=== PATIENT | male | born 1995 ===

== ENCOUNTER 2017-10-21 09:37 | Emergency (ER) | payer SELFPAY ==
[~2017-10-21] VITALS: Ht 170.2 cm; Wt 68.0 kg
[~2017-10-21 09:37] MED LIST: AMOX500 PO; CEPH500 PO; CODACEE120 PO; Cymbalta60 MG PO; HYDACE5 PO; IBUP800 PO; PENVK500 PO; PRAZ1 PO; PRAZ5 PO; RXHYDACE PO; RXPENVK250 PO; SILSUL1TC TOP; VENL150ER PO; VENL75ER PO; Veetids 500500 MG PO
[2017-10-21] MEDS ORDERED: NAPR500 PO (10:47)
[2017-10-21] MEDS ORDERED: Keflex500 MG PO (10:47)
[2017-10-21] MEDS ORDERED: Vibramycin100 MG PO (10:47)
== END 2017-10-21 10:56 | disposition home or self-care (01) ==
LOC: ER 09:37
DX: L03.032 Cellulitis of left toe (principal); F17.210 Nicotine dependence, cigarettes, uncomplicated; Z88.2 Allergy status to sulfonamides; Z88.1 Allergy status to other antibiotic agents; Z79.899 Other long term (current) drug therapy; Z86.14 Personal history of Methicillin resistant Staphylococcus aureus infection
CPT/HCPCS: 99282

== ENCOUNTER 2017-10-23 00:38 | Inpatient (IN) | payer SELFPAY ==
[~2017-10-23] VITALS: Ht 170.2 cm; Wt 68.0 kg
[~2017-10-23 00:38] MED LIST changes: +Keflex500 MG PO; +NAPR500 PO; +Vibramycin100 MG PO
[2017-10-23 01:33] LABS: BASOPHILS ABSOLUTE AUTO 0.05 K/mm3 (0.00-0.23); BASOPHILS PERCENT AUTO 0 % (0-2); EOSINOPHILS PERCENT AUTO 2 % (0-6); Hematocrit 39.5 % (37.0-53.0); Hemoglobin 13.2 g/dL (13.5-17.5); IMMATURE GRAN ABSOLUTE AUTO 0.06 K/mm3 (0.00-0.10); IMMATURE GRAN PERCENT AUTO 0 % (0-1); LYMPHOCYTES ABSOLUTE AUTO 2.38 K/mm3 (0.84-5.20); LYMPHOCYTES PERCENT AUTO 18 % (21-46); MONOCYTES PERCENT AUTO 6 % (4-13); Mean Corpuscular HGB 29.9 pg (26.0-34.0); Mean Corpuscular HGB Conc 33.4 g/dL (31.5-36.5); Mean Corpuscular Volume 90 fL (80-100); Mean Platelet Volume 10.5 fL (9.1-12.4); NEUTROPHILS ABSOLUTE AUTO 9.99 K/mm3 (1.96-9.15); NEUTROPHILS PERCENT AUTO 74 % (41-73); Platelet Count 194 K/mm3 (150-400); RDW Coefficient Variation 12.1 % (11.7-14.2); RDW Standard Deviation 39.6 fL (35.1-46.3); Red Blood Cell Count 4.41 M/mm3 (4.30-5.90); White Blood Cell Count 13.58 K/mm3 (4.00-11.30)
[2017-10-23 02:02] LABS: Alanine Aminotransfer (ALT/SGP 41 U/L (12-78); Albumin, Blood 3.9 g/dL (3.4-5.0); Alk Phos 135 U/L (50-136); Anion Gap 7 mmol/L (6-16); Aspartate Aminotrans (AST/SGOT 31 U/L (12-37); Bilirubin, Total 0.3 mg/dL (0.1-1.0); Blood Urea Nitrogen 10 mg/dL (8-24); Bun/Creatinine Ratio 15.2 (12.0-20.0); CO2, Blood 25 mmol/L (21-32); Calcium, Blood 8.4 mg/dL (8.5-10.1); Chloride, Blood 109 mmol/L (98-108); Creatinine, Blood 0.66 mg/dL (0.60-1.20); Globulin, Blood 3.9 g/dL (2.2-4.0); Glomerular Filtration Rate >60 (60-); Glucose, Blood 107 mg/dL (70-99); Potassium, Blood 3.5 mmol/L (3.5-5.5); Sodium, Blood 141 mmol/L (136-145); Total Protein, Blood 7.8 g/dL (6.4-8.2)
[2017-10-23] MEDS ORDERED: CEPH500 PO (10:51)
[2017-10-23] MEDS ORDERED: Vibramycin100 MG PO (10:52)
[2017-10-23] MEDS ORDERED: IBUP400 PO (11:23)
== END 2017-10-23 11:45 | disposition home or self-care (01) | DRG 603 ==
LOC: ER 00:38 → MEDS 00:39
PROVIDERS: Emergency Medicine
PROC: 3E0234Z Introduction of Serum, Toxoid and Vaccine into Muscle, Percutaneous Approach (ICD-10-PCS; principal; 2017-10-23)
DX: L03.116 Cellulitis of left lower limb (principal); F17.210 Nicotine dependence, cigarettes, uncomplicated; Z23 Encounter for immunization; Z79.899 Other long term (current) drug therapy; Z88.1 Allergy status to other antibiotic agents; Z88.2 Allergy status to sulfonamides
CPT/HCPCS: 36415; 80053; 83605; 85025; 96365; 96375; 99285; J0690; J0696; J1170; J1885; J2405; J3370; J7030; J7050; Q2038